=== PATIENT | female | born 1955 ===

== ENCOUNTER → 2024-10-07 08:15 | Outpatient (CLI) | payer OTHER ==
[2024-10-07 10:16] LABS: CREATININE SERUM 0.76 mg/dL (0.55-1.02)
== END | disposition home or self-care (01) ==
LOC: LAB 08:15
PROVIDERS: ATTEND Radiology Diagnostic Radiology
DX: R10.13 Epigastric pain (principal); K76.89 Other specified diseases of liver

== ENCOUNTER 2024-10-11 06:40 | Outpatient (CLI) | payer OTHER | END 2024-10-11 06:55 | disposition home or self-care (01) | LOC: MRI 06:40 | PROVIDERS: ATTEND Internal Medicine Gastroenterology | DX: R10.13 Epigastric pain (principal); R93.2 Abnormal findings on diagnostic imaging of liver and biliary tract; K77 Liver disorders in diseases classified elsewhere; K76.89 Other specified diseases of liver | CPT/HCPCS: 74183; Q9965 ==